=== PATIENT | female | born 1995 | race Caucasian/White ===

== ENCOUNTER 2024-04-15 17:03 | Inpatient (IN) | payer BC, MEDICAID, SELFPAY ==
[2024-04-15] VITALS (76 sets, daily range): BP systolic 101–134; BP diastolic 49–85; PULSE 74–129; TEMP 36.1; O2SAT 96–100; BMI 38.0
[2024-04-15] MEDS: dextrose 5%-lactated ringers 1,000 ML 125 ML IV (16:59)
[2024-04-15 17:00] LABS: Basophils # 0.1 10^3/uL (0.0-0.1); Basophils % 0.4 %; Eosinophils # 0.1 10^3/uL (0.0-0.8); Eosinophils % 0.5 %; Hematocrit 31.9 % (36-47); Lymphocytes # 3.7 10^3/uL (0.8-4.8); Lymphocytes % 21.9 %; Mean Corpuscular HGB Conc 33.2 g/dL (30-55); Mean Corpuscular Hemoglobin 28.9 pg (27-33); Mean Corpuscular Volume 86.9 fl (85-98); Mean Platelet Volume 11.8 fL (7.4-10.4); Monocytes # 1.3 10^3/uL (0.2-0.9); Monocytes % 7.8 %; Neutrophils # 11.76 10^3/uL (1.8-7.7); Neutrophils % 68.8 %; Nucleated Red Blood Cells % 0 %; Platelet Count 320 10^3/cmm (157-399); Red Blood Count 3.67 10^6/uL (3.85-5.65); Red Cell Distribution Width 13.2 % (12.1-15.1); White Blood Count 17.08 10^3/uL (3.29-11.43)
[2024-04-15] MEDS: oxytocin 30 UNIT/500 ML BAG IV (17:00)
[2024-04-15] MEDS: sodium chloride 0.9% 1,000 ML 999 ML IV ×2 (17:05→18:07)
--- NOTE | 2024-04-15 17:21 | ANES.PREANE2 ---
Pre-Anesthetic Assessment Height/Weight: Height 1.6 m Weight 97.522 kg Temp Pulse BP O2 Del Method 97.0 F L 90 118/67 Room Air 04/15/24 17:00 04/15/24 17:03 04/15/24 17:03 04/15/24 17:13 Epidural Familial anesthetic complications: None Was Beta Yareli taken within 24 hours: N/A Was Clonidine taken within 24 hours: N/A Last intake: 1100 solid food, liquid 1530 Social Tobacco and No alcohol 1 pack(s) per day Exam alert, oriented x 3, clear to auscultation bilaterally and regular rate & rhythm Airway Submandibular: within normal limits Cervical ROM: within normal limits Mallampati: Class II Dentition: false History/ROS No significant history except as noted and No significant complaints Pulmonary Cough CV/HEM None reported None reported Hepatic None reported GI Gastroesophageal Reflux Disease (Gestational) Metabolic None reported Musc/skel None reported Neuropsych None reported Anesthetic Plan ASA status: 2 Anesthesia: Anesthesia Evaluation, General and Regional (specify below) (Epidural) Risk of > 500 ml blood loss (7ml/kg in children): Yes, adequate IV access and fluids planned Medications/Allergies Home Medications ?Medication ?Instructions ?Recorded ?Confirmed ?Last Taken ?Type aspirin 04/15/24 04/14/24 16:00 History no.58-iron bisglycinate cap PO 04/15/24 04/14/24 16:00 History 10 mg iron-folic acid 400 mcg capsule Allergies Allergy/AdvReac Type Severity Reaction Status Date / Time No Known Allergies Allergy Verified 04/15/24 16:33 Current Medications Generic Name Dose Route Start Last Admin Trade Name Adriano PRN Reason Stop Dose Admin Dextrose/Lactated Ringer's 1,000 mls @ 125 mls/hr 04/15/24 16:45 04/15/24 17:07 Dextrose 5%-Lactated Ringers IV 0 mls/hr .Q8H TONO Infusion Oxytocin 30 unit in 500 mls @ 1 mls/hr 04/15/24 16:45 04/15/24 17:00 Pitocin IV 2 milliunit/min .Q24H TONO 2 mls/hr Administration Protocol 1 MILLIUNIT/MIN Sodium Chloride 1,000 mls @ 999 mls/hr 04/15/24 16:53 04/15/24 17:05 Sodium Chloride 0.9% IV 999 mls/hr .Q1H1M PRN Administration See label comments PFSH Anesthesia Female Reproductive History : 10 Data Anesthesia 04/15/24 16:45 Short CBC 04/15/24 Range/Units 16:45 WBC 17.08 H (3.29-11.43) 10^3/uL Hgb 10.60 L (11.27-16.99) g/dL Hct 31.9 L (36-47) % MCV 86.9 (85-98) fl Plt Count 320 (157-399) 10^3/cmm Neut % (Auto) 68.8 % Neut # (Auto) 11.76 H (1.8-7.7) 10^3/uL Cardiac Studies: No Data to Display
--- NOTE | 2024-04-15 18:24 | PC.NURSE ---
this epidural noted to be in a vessel prior to starting pump. pt sat back up, cath removed by DIANA Bolton and second attempt started.
[2024-04-15] MEDS: ROPivacaine syringe 100 MG/50 ML SYRINGE 10 MG EPIDURAL ×2 (18:33→22:00)
--- NOTE | 2024-04-15 18:37 | ANES.PROC ---
Anesthesia Procedures Procedure/Date: 04/15/24 Epidural: Time Out Performed: Yes Consents Signed: Procedure Consent and NPO Consent Consent: requested by attending/covering physician, from patient, risks and benefits reviewed and patient agrees to proceed Lumbar Level: L2-L3 Epidural position: sitting Epidural procedure: sterile prep of area (betadine), 1% lidocaine to numb the area (3 mLs), neg for paresthesia, test dose given, 1.5% xylocaine 1:200k epi (3 mLs/ 2 mLs), 0.2% Ropivacaine bolus ml (3 mLs), placed PCEA, no systemic response, sterile dressing applied, L.U.D. no apparent complications and 0.2% Ropiavacaine @ mls/hr (13) Additional Comments: First attempt ÁNGEL 6.5cm, negative for CSF or blood on aspiration. Negative test dose. Patient was laid in the supine position and upon aspiration blood was noted in the catheter. Patient was sat up, epidural pulled with tip intact, and a second attempt was made. Second attempt was done one level higher and blood was noted upon aspiration again. Epidural removed and repositioned. Attempt 3 successful with ÁNGEL at 7cm, catheter threaded to 12cm. Negative for CSF and blood. Negative test dose. Patient tolerated well.
[2024-04-16] VITALS (95 sets, daily range): BP systolic 89–147; BP diastolic 46–113; PULSE 65–116; RESP 16–18; TEMP 36.4–37.2; O2SAT 98–99
[2024-04-16] MEDS: dextrose 5%-lactated ringers 1,000 ML 125 ML IV ×2 (02:57→14:40)
[2024-04-16] MEDS: ROPivacaine syringe 100 MG/50 ML SYRINGE 10 MG EPIDURAL ×2 (04:09→07:07)
--- NOTE | 2024-04-16 08:05 | PC.NURSE ---
0755 ORDERS TO INCREASE PITOCIN UP TO [address] ALONZO.
--- NOTE | 2024-04-16 09:08 | ANES.PROC ---
Anesthesia Procedures Procedure/Date: 04/16/24 Epidural: Time Out Performed: Yes Consents Signed: Procedure Consent Consent: requested by attending/covering physician, from patient, risks and benefits reviewed and patient agrees to proceed Lumbar Level: L3-L4 Epidural position: sitting Epidural procedure: sterile prep of area, 1% lidocaine to numb the area, 18 g needle, neg for paresthesia, test dose given, 1.5% xylocaine 1:200k epi (5cc), 0.2% Ropivacaine bolus ml (4cc and fentanyl 100mcg), placed PCEA, no systemic response, sterile dressing applied, L.U.D. no apparent complications and 0.2% Ropiavacaine @ mls/hr (13cc/hour) Additional Comments: Prior epid with inadequate pain relief. DC'd. Pt consents to new epidural. Epid performed and pt tolerated well
[2024-04-16] MEDS: sodium chloride 0.9% 1,000 ML 999 ML IV (09:13)
--- NOTE | 2024-04-16 10:04 | PC.NURSE ---
PATIENT HAS EPIDURAL AND IS ON BEDREST AT THIS TIME.
--- NOTE | 2024-04-16 10:11 | PC.NURSE ---
CURRENT EPIDURAL REMOVED WITH CATH INTACT. NO ISSUES.
[2024-04-16] MEDS: ROPivacaine syringe 100 MG/50 ML SYRINGE 13 MG EPIDURAL ×3 (10:14→15:11)
--- NOTE | 2024-04-16 11:59 | PM.OPHPUD ---
Labor & Delivery H&P Update Date of Procedure: April 16, 2024 Date H&P Performed: 04/13/24 Admission Diagnosis: IUP at 39 weeks 5 days gestation with SROM Planned procedure: Augmentation of labor and delivery
--- NOTE | 2024-04-16 12:00 | P.PN_ITS ---
[employer] DETECTIVE Subjective 2 Subjective: Interval history: This is a 28-year-old at 39 weeks 5 days gestation who presented last evening with spontaneous rupture membranes with clear fluid. She was shaye regularly on her own and received an epidural for pain management. Despite regular contractions she was not making any cervical change so she was started on Pitocin. She has made minimal change on Pitocin this morning. Nursing thought they may have felt a rubbery forebag so I presented to possibly rupture that but could not definitively identify 1. The patient is still 4 cm, 75% effaced, -2 station Labor: Station: -2 Amniotic Membrane Status: Ruptured Monitor Mode: External Contraction Pattern: Regular Status: Category I Vitals/I&O/Wt Last Vital Signs Temp 98.9 F 04/16/24 11:15 Pulse 72 04/16/24 11:46 Resp 16 04/16/24 07:00 BP 116/54 04/16/24 11:46 Pulse Ox 98 04/16/24 09:17 O2 Del Method Room Air 04/15/24 17:13 04/15/24 04/16/24 04/16/24 22:59 06:59 14:59 Intake Total 1619.834 / 5612.014 4308.517 / 2647.351 198.933 / 198.933 Output Total 900 / 900 Balance 1619.834 / 4101.956 8873.517 / 2647.351 -701.067 / -701.067 Weight last 48 hrs Weight 97.522 kg Physical Exam 2 Narrative: Alert and oriented, resting in bed, SVE 4 cm, 75% effaced, -2 station Urinary Catheter Management: Granger Latex: Cath Placed During This Visit: yes Reason for Continuing Indwelling Catheter: Required Immobilization for Trauma or Surgery or Anesthesia Urinary Catheter Date of Insertion: 04/15/24 Urinary Catheter Time of Insertion: 20:00 Data 04/15/24 16:45 A&P Assessment and plan (1) Labor with prolonged first stage, antepartum: We have increased the Pitocin and are continuing to do position changes. She will be rechecked in several hours. We have discussed possible section if patient does not progress on maximum Pitocin. PDMP PDMP Reviewed: Not Reviewed Attestations 2 Medical Necessity Statement*: Expectant management of labor and delivery Coding Level of Care Code Acute Code for Chg Fwd Diagnoses Labor with prolonged first stage, antepartum O63.0
[2024-04-16] MEDS: oxytocin 30 UNIT/500 ML BAG 999 UNIT IV (14:40)
--- NOTE | 2024-04-16 15:56 | P.PCNOB_ITS ---
Delivery Note: Date of delivery: April 16, 2024 Procedure: Normal spontaneous vaginal delivery Estimated blood loss (mL): 150 Pre-Delivery Course: The patient had routine care at [facility]. There were no complications during the . She was blood type O+ antibody negative, hepatitis B nonreactive, hepatitis C nonreactive, HIV nonreactive, rubella immune, GC chlamydia negative, RPR nonreactive, UDS negative, Q low risk, she passed her glucose tolerance test, she was GBS negative. Delivery: This is a 28-year-old at 39 weeks 5 days gestation who presented to labor labor and delivery complaining of spontaneous rupture of membranes. Rupture membranes was clear fluid and was approximately 24 hours prior to delivery. The patient was GBS negative. She received an epidural for pain management. It took her a good 20 hours of in active labor and to the initiation of Pitocin before she entered active labor. After that her labor progressed rather quickly. She had a normal spontaneous vaginal delivery of a viable male infant weight 3390 g, 7 pounds 8 ounces, Apgars 9 and 9 over an intact perineum. The was suctioned at delivery and placed on the mother's chest. The cord was clamped and cut. The placenta was delivered grossly intact and normal to inspection. There were no lacerations. Mother and were doing well after delivery. A&P Assessment and plan (1) (normal spontaneous vaginal delivery): PDMP PDMP Reviewed: Not Reviewed Coding Level of Care Code Acute Code for Chg Fwd Diagnoses (normal spontaneous vaginal delivery) O80
[2024-04-16] MEDS: tranexamic acid 1,000 MG/100 ML PREMIX 600 MG IV (16:18)
[2024-04-16] MEDS: miSOPROStol 200 mcg Tablet 800 MCG PR (16:18)
[2024-04-16] MEDS: docusate sodium 100 mg Capsule PO (20:37)
[2024-04-16] MEDS: ibuprofen 800 mg tablet PO (20:37)
[2024-04-17 00:10] VITALS: BP 112/65; PULSE 69; RESP 16; O2SAT 98
[2024-04-17 04:10] VITALS: BP 99/57; PULSE 78; RESP 16; TEMP 36.6; O2SAT 98
[2024-04-17 04:20] LABS: Hematocrit 28.4 % (36-47); Mean Corpuscular HGB Conc 32.7 g/dL (30-55); Mean Corpuscular Hemoglobin 28.7 pg (27-33); Mean Corpuscular Volume 87.7 fl (85-98); Mean Platelet Volume 11.5 fL (7.4-10.4); Platelet Count 270 10^3/cmm (157-399); Red Blood Count 3.24 10^6/uL (3.85-5.65); Red Cell Distribution Width 13.2 % (12.1-15.1); White Blood Count 28.75 10^3/uL (3.29-11.43)
--- NOTE | 2024-04-17 08:00 | ANE.PACU2 ---
Inpatient post-anesthesia follow up: Airway intact: Yes Vital signs: Temperature 98.2 F Pulse Rate 63 Respiratory Rate 17 Blood Pressure 109/74 Pulse Oximetry 98 Oxygen Delivery Me thod Room Air Oxygen Flow Rate Fraction of Inspir ed Oxygen Hydration adequate: Yes Nausea and vomiting: No Pain level: 1 Mental status: Baseline Epidural Start/End: Epidural Start Date: 04/15/24 Epidural Start Time: 17:40 Epidural End Date: 04/16/24 Epidural End Time: 18:05
[2024-04-17] MEDS: PRENATAL VIT NO.130/IRON/FOLIC 1 EACH TABLET PO (08:25)
[2024-04-17] MEDS: docusate sodium 100 mg Capsule PO (08:25)
[2024-04-17] MEDS: ibuprofen 800 mg tablet PO (08:25)
[2024-04-17 10:35] VITALS: BP 93/46; PULSE 67; RESP 16; TEMP 36.7; O2SAT 97
--- NOTE | 2024-04-17 12:54 | P.DS_ITS ---
Discharge Providers Date of Admission: 04/16/24 12:07 Date of Discharge: April 17, 2024 Attending Provider at Admission: Cortney Fuller MD Attending Provider at Discharge: Cortney Fuller MD Primary Care Provider: Coyr Flores Diagnoses at Discharge Discharge Diagnosis (1) (normal spontaneous vaginal delivery): Status: Acute Reason for Visit Reason for Visit: POSS ROM Hospital Course Hospital Course This is a 28-year-old G10 now P4 who was admitted with spontaneous rupture of membranes. She had a normal spontaneous vaginal delivery of a viable male infant. Mother and infant have done well . She is ambulating, tolerating a regular diet, has average vaginal bleeding and is comfortable with discharge home. Physical Exam Narrative: Alert and oriented sitting up on the side of the bed eating lunch, heart regular rate and rhythm, lungs clear to auscultation bilaterally, abdomen is soft and nontender, fundus is firm, extremities have 3+ edema but no calf tenderness Urinary Catheter Management: Granger Latex: Cath Placed During This Visit: yes, but has since been removed by the nurse Reason for Continuing Indwelling Catheter: Decision to DC Catheter Urinary Catheter Date of Insertion: 04/15/24 Urinary Catheter Time of Insertion: 20:00 Date Urinary Catheter Removed: 04/16/24 Time Urinary Catheter Discontinued: 15:30 Discharge Data Studies Completed and Pending Laboratory Results WBC 28.75 10^3/uL (3.29-11.43) H 04/17/24 04:10 RBC 3.24 10^6/uL (3.85-5.65) L 04/17/24 04:10 Hgb 9.30 g/dL (11.27-16.99) L 04/17/24 04:10 Hct 28.4 % (36-47) L 04/17/24 04:10 MCV 87.7 fl (85-98) 04/17/24 04:10 MCH 28.7 pg (27-33) 04/17/24 04:10 MCHC 32.7 g/dL (30-55) 04/17/24 04:10 RDW 13.2 % (12.1-15.1) 04/17/24 04:10 Plt Count 270 10^3/cmm (157-399) 04/17/24 04:10 MPV 11.5 fL (7.4-10.4) H 04/17/24 04:10 Neut % (Auto) 68.8 % 04/15/24 16:45 Lymph % (Auto) 21.9 % 04/15/24 16:45 [place] % (Auto) 7.8 % 04/15/24 16:45 Eos % (Auto) 0.5 % 04/15/24 16:45 Baso % (Auto) 0.4 % 04/15/24 16:45 Neut # (Auto) 11.76 10^3/uL (1.8-7.7) H 04/15/24 16:45 Lymph # (Auto) 3.7 10^3/uL (0.8-4.8) 04/15/24 16:45 [place] # (Auto) 1.3 10^3/uL (0.2-0.9) H 04/15/24 16:45 Eos # (Auto) 0.1 10^3/uL (0.0-0.8) 04/15/24 16:45 Baso # (Auto) 0.1 10^3/uL (0.0-0.1) 04/15/24 16:45 Nucleated RBC % (auto) 0 % 04/15/24 16:45 Nucleated RBCs # 0.0 /100WBC 04/15/24 16:45 Blood Type O Positive 04/15/24 16:45 Rho(D) Type Rh positive 04/15/24 16:45 Antibody Screen Negative 04/15/24 16:45 Vitals Last Vital Signs Temp 97.9 F 04/17/24 04:10 Pulse 78 04/17/24 04:10 Resp 16 04/17/24 04:10 BP 99/57 04/17/24 04:10 Pulse Ox 98 04/17/24 04:10 O2 Del Method Room Air 04/17/24 04:10 Discharge Plan Discharge Patient Disposition: Home Condition: Stable Prescriptions: Continued PNV comb no.58-iron bisgly-FA 10-400 mg-mcg Capsule 1 cap PO DAILY Discontinued aspirin 1 tab PO DAILY Rx Instructions: 81 MG Discharge Orders: Discharge Order (Routine); Ordered 04/17/24 Ordered By: Cortney Fuller Referrals: Cortney Fuller MD [Physician] - 1 month Discharge Diet: Usual diet Discharge Activity: Limit activity as instructed Patient Instructions: Depression (DC), Opioid Safety (DC), Preeclampsia and Eclampsia After Delivery (GEN), Hemorrhage (DC), OB Discharge Report, OB Food/Drug Interaction Guide, OB Care at Home, Opioid Safety, OB Vaginal Deliveries, Abnormal Bleeding Activity Restrictions/Additional Instructions: Nothing per vagina for 6 weeks Discharge Attestations Time Spent in Discharge Care*: less than 30 min Quality Metrics Clinical Quality Measures [ No reported AMI, CVA or VTE this stay] Coding Level of Care Code Acute Code for Chg Fwd Diagnoses (normal spontaneous vaginal delivery) O80
[2024-04-17 16:36] VITALS: BP 109/74; PULSE 63; RESP 17; TEMP 36.8; O2SAT 98
[2024-04-17 16:49] VITALS: BP 109/74; PULSE 63; RESP 17; TEMP 36.8; O2SAT 98
== END 2024-04-17 16:49 | disposition home or self-care (01) | DRG 807 ==
LOC: OPOB 17:03 → OBGYN 17:17
PROVIDERS: Admitting Provider Family Medicine; Family Provider Family Medicine; PCP Family Medicine; Visit Provider Family Medicine
DX: O63.0 Prolonged first stage (of labor) (principal); Z37.0 Single live birth; O99.334 Smoking (tobacco) complicating childbirth; F17.210 Nicotine dependence, cigarettes, uncomplicated; Z3A.39 39 weeks gestation of pregnancy; O75.89 Other specified complications of labor and delivery; K21.9 Gastro-esophageal reflux disease without esophagitis
CPT/HCPCS: 36415; 51702; 59025; 59409; 83986; 85025; 85027; 86850; 86900; 99211; G0378; J2590; J2795; J3010; J7030; J7121